=== PATIENT | female | born 1990 | race Caucasian/White ===

== ENCOUNTER → 2020-07-22 | Outpatient (CLI) | payer OTHER ==
[2020-07-22 15:46] LABS: HEMOGLOBIN 13.3 gm/dl (12.3-15.3); RED BLOOD COUNT 4.17 M/UL (4.00-5.10); WHITE BLOOD COUNT 11.8 K/UL (4.5-11.0)
[2020-07-22 16:07] LABS: BUN/CREATININE RATIO 20 (0-10)
[2020-07-23 11:15] LABS: HBSAG SCREEN Negative (Negative); HEP B CORE AB, TOT Negative (Negative)
[2020-07-23 12:15] LABS: RHEUMATOID ARTHRITIS FACTOR <10.0 IU/mL (0.0-13.9)
[2020-07-23 17:11] LABS: RNP ANTIBODIES 0.2 AI (0.0-0.9); SJOGREN'S ANTI-SS-A <0.2 AI (0.0-0.9); SJOGREN'S ANTI-SS-B <0.2 AI (0.0-0.9); SMITH ANTIBODIES <0.2 AI (0.0-0.9)
[2020-07-25 01:07] LABS: CCP ANTIBODIES IGG/IGA 6 units (0-19)
[2020-07-27 07:10] LABS: QUANTIFERON MITOGEN VALUE >10.00 IU/mL (.); QUANTIFERON-TB GOLD PLUS Negative (Negative)
[2020-07-28 08:10] LABS: HCV AB >11.0 (0.0-0.9); HCV RNA NAA QUALITATIVE Negative (Negative)
== END ==
LOC: LAB 14:18
PROVIDERS: Internal Medicine
DX: M25.50 Pain in unspecified joint (principal); L40.9 Psoriasis, unspecified; Z79.899 Other long term (current) drug therapy
CPT/HCPCS: 80053; 83520; 85025; 86200; 86235; 86431; 86704; 86803; 87340